=== PATIENT | female | born 1990 | race Caucasian/White ===

== ENCOUNTER → 2017-07-31 09:51 | Outpatient (CLI) | payer OTHER, SELFPAY ==
--- NOTE | 2017-07-31 | DI.US.S_ITS ---
PROCEDURE: US OB FOLLOW UP INDICATIONS: RE-EVALUATION FACE AND HEART OUTSIDE/PRIOR DATING DATA: Last menstrual period (LMP): 02/06/17. LMP-based estimated date of delivery (JEFFERY): 11/13/17. First dating scan (date and location): 06/21/17 Estimated date of delivery (JEFFERY) from first dating scan: 11/14/17. TECHNIQUE: Real-time scanning was performed of the fetus, with image documentation. Endovaginal scanning: Not needed for this study COMPARISON: None. FINDINGS: A single living intrauterine gestation is present. Presentation: Vertex. Placenta: Placental position is anterior, without previa. Amniotic fluid index: 15.6 cm, normal range is 5-24 cm. heart rate: 145 beats per minute. Maternal cervical canal: Estimated gestational age from initial scan: 24 weeks 6 days. The facial area and lips/orbits were not well seen on the prior anatomy scan 06/27/17 and are well-visualized and appear normal now. Similarly, the ventricular outflow tracts were not well seen than previously and now are well-visualized and appear normal. IMPRESSION: Completion of anatomic survey with normal appearing structures noted above. Dictated by: Gene Hercules M.D. on 07/31/2017 at 11:23 Approved by: Gene Hercules M.D. on 07/31/2017 at 11:25
== END ==
PROVIDERS: PCP Family Medicine; Visit Provider Family Medicine
DX: Z34.92 Encounter for supervision of normal pregnancy, unspecified, second trimester (principal); Z3A.24 24 weeks gestation of pregnancy
CPT/HCPCS: 76816

== ENCOUNTER → 2017-10-18 12:09 | Outpatient (CLI) | payer OTHER, SELFPAY ==
[2017-10-19 08:58] LABS: Strep Grp B PCR NEG for Grp B Strep
== END ==
PROVIDERS: PCP Family Medicine; Visit Provider Family Medicine
DX: Z34.03 Encounter for supervision of normal first pregnancy, third trimester (principal)
CPT/HCPCS: 87653

== ENCOUNTER 2017-11-13 01:17 | Inpatient (IN) | payer OTHER, SELFPAY ==
[2017-11-13 03:56] LABS: Add Manual Diff / Slide Review NO; Basophils Percent Auto 0.2 % (0-2); Eosinophils Percent Auto 0.1 % (2-4); Hematocrit 29.2 % (36-46); Lymphocytes Percent Auto 6.4 % (25-40); Mean Corpuscular HGB Conc 34.2 % (30-36); Mean Corpuscular Hemoglobin 28.1 PG (26-34); Mean Corpuscular Volume 82.1 fL (80-100); Monocytes Percent Auto 3.3 % (3-14); Neutrophils Absolute Auto 15800 /uL (3000-5900); Platelet Count 213 X10^3/uL (150-400); Red Blood Cell Count 3.56 X10^6/uL (4.0-5.2); Red Cell Distribution Width 14.6 % (11.6-14.8); White Blood Cell Count 17.6 X10^3/uL (4.5-11.0)
[2017-11-13 05:53] VITALS: BP 129/80
[2017-11-13] MEDS: IBUPROFEN 600 MG TABLET PO ×3 (06:44→20:06)
--- NOTE | 2017-11-13 08:19 | PM.OBHP.1 ---
OB HPI Date/Time Date of admission: 11/13/17 Date Patient Seen: 11/13/17 Time Patient Seen: 04:00 History of Present Condition Chief complaint: LABOR & DELIVERY : 3 Para: 0 Estimated Date of Delivery: 11/15/17 Estimated Gestational Age (weeks): 39w5d Narrative: Jami Campbell is a 27 year old who presented in active labor. She reports having contractions starting around 10pm. They have been getting progressively closer together and stronger in intensity, now every 2-3 minutes. She has had some vaginal spotting. No LOF. Feeling baby move regularly. History of Present care: good care Dating criteria: LMP confirmed by 1st trimester US Ultrasounds: normal mid trimester US Obstetrical complications: none Medical complications: none Preadmission Labs Blood type: A (+) positive -: Antibody screen: negative, GBS status: negative, HBsAG: negative, HIV: negative and RPR/VDLR: negative -: Chlamydia screen: not detected and Gonorrhea screen: not detected -: Rubella: immune and Varicella: immune HCT: 29.1 HCAB: negative Urine: negative 1 hr GTT: 139 3 hr GTT: 1 hr (128), 2 hr (137) and 3 hr (61) Prior (ies) History: 2 spontaneous abortions Evaluation Evaluation Baseline heart rate: 130 Variability: Moderate (11-25) monitor accelerations: Present monitor decelerations: Absent Contraction Frequency (minutes): 3 Category of Tracing: I Cervical dilation (cm): 10 Cervical effacement (%): 100 station: +2 Laboratory results: Laboratory Tests 11/13/17 11/13/17 03:40 03:40 WBC 17.6 H RBC 3.56 L Hgb 10.0 L Hct 29.2 L MCV 82.1 MCH 28.1 MCHC 34.2 RDW 14.6 Plt Count 213 Neut % (Auto) 90.0 H Lymph % (Auto) 6.[address] [place] % (Auto) 3.3 Eos % (Auto) 0.1 L Baso % (Auto) 0.2 Neut # (Auto) 20910 H Blood Type A Positive Antibody Screen Negative PFSH Social History Smoking Status: Never smoker Meds Home Medications Medication Instructions Recorded Confirmed Type [ TABLET] #100 06/21/17 09/06/17 History breast pump #1 each 09/24/17 Rx Electric Breast Pump #1 ea 09/25/17 Rx Allergies Allergy/AdvReac Type Severity Reaction Status Date / Time Penicillins [PENICILLINS] Allergy Unknown Unverified 06/26/17 12:51 Review of Systems Review of Systems All systems reviewed & are unremarkable except as noted in HPI and below Exam Vital Signs (past 8 hours): - 11/13/17 05:53 Blood Pressure 129/80 H Narrative Exam Narrative: Gen: Appears very uncomfortable with contractions, sitting in bed, breathing heavily CV: RRR Resp: clear to auscultation bilaterally Abd: gravid, soft, appropriately tender Ext: trace edema Objective Labs Result Diagrams: 11/13/17 03:40 Labs: Laboratory Results - last 24 hr 11/13/17 11/13/17 03:40 03:40 WBC 17.6 H RBC 3.56 L Hgb 10.0 L Hct 29.2 L MCV 82.1 MCH 28.1 MCHC 34.2 RDW 14.6 Plt Count 213 Neut % (Auto) 90.0 H Lymph % (Auto) 6.[address] [place] % (Auto) 3.3 Eos % (Auto) 0.1 L Baso % (Auto) 0.2 Neut # (Auto) 23434 H Blood Type A Positive Antibody Screen Negative Assessment and Plan (1) 39 weeks gestation of : Current visit: Yes Status: Acute Plan: Plan: 27yo at 39w5d who presented in active labor. GBS negative, Rh positive. - Expectant management, anticipate - FHT reassuring - GBS negative, no antibiotics indicated - Does not desire epidural for pain control
--- NOTE | 2017-11-13 08:30 | PM.OBPRVD ---
Delivery date: 11/13/17 Intrapartal events: None Induction method: none Delivery monitor: external FHT Route of delivery: Episiotomy description: None Laceration description: Vaginal - 1st Degree (right labial) Delivery repair: chromic Estimated blood loss (mL): 300 Anesthesia type: None Complications: None Narrative: PROCEDURE: at 39w5d presented in active labor and was admitted to Labor and Delivery. The patient progressed through the 1st stage over 5 hours. Pain was controlled with natural methods. The patient progressed through the 2nd stage over 30 minutes and delivered a viable female infant with APGARs 8/9 at 4:13 via . The perineum and vagina were inspected with right labial laceration repaired with 3-O Chromic. PREPROCEDURE DIAGNOSIS: Intrauterine at 39w5d Anemia GBS negative RH positive POSTPROCEDURE DIAGNOSIS: Intrauterine at 39w5d, delivered Same as preprocedure PROCEDURE: Spontaneous vaginal delivery LABOR AUGMENTATION: None ROM APPEARANCE: Clear BABY A OUTCOME: Viable BABY A WEIGHT: 8lb7oz BABY A CORD GASES OBTAINED: No PLACENTA DELIVERY TIME: 4:19 PLACENTA APPEARANCE: Intact Baby 1: gender: Female Presentation: vertex position: Right Occiput Anterior Placenta delivery description: Spontaneous cord vessel description: 3 Vessels score (1 min): 8 score (5 min): 9 Narrative: Plan for aftercare: Normal care support
[2017-11-13] MEDS: PRENATAL VIT,CALC/IRON/FOLIC 1 TABLET 1 TAB PO (10:58)
[2017-11-13] MEDS: DOCUSATE 250 MG CAPSULE PO (10:58)
[2017-11-14] MEDS: IBUPROFEN 600 MG TABLET PO ×3 (02:13→16:51)
[2017-11-14 06:16] LABS: Add Manual Diff / Slide Review NO; Basophils Percent Auto 0.2 % (0-2); Eosinophils Percent Auto 0.4 % (2-4); Hematocrit 25.1 % (36-46); Hemoglobin 8.6 g/dL (12.0-16.0); Mean Corpuscular HGB Conc 34.4 % (30-36); Mean Corpuscular Hemoglobin 28.6 PG (26-34); Mean Corpuscular Volume 83.2 fL (80-100); Monocytes Percent Auto 5.2 % (3-14); Neutrophils Absolute Auto 9000 /uL (3000-5900); Neutrophils Percent Auto 79.2 % (50-75); Platelet Count 191 X10^3/uL (150-400); Red Blood Cell Count 3.02 X10^6/uL (4.0-5.2); Red Cell Distribution Width 14.9 % (11.6-14.8); White Blood Cell Count 11.3 X10^3/uL (4.5-11.0)
--- NOTE | 2017-11-14 09:04 | P.DS_ITS ---
Discharge Providers Date of admission: 11/13/17 01:17 Primary care physician: Richa Pinto MD Consults: 11/13/17 05:53 Consult to Precision Lathe Operator Routine Comment: Discharge provider: Richa Pinto MD Summary Date Patient Seen: 11/14/17 Time Patient Seen: 08:10 Hospital Course: The patient presented in active labor. She has natural methods for pain control. She progressed to complete and had spontaneous vaginal delivery of a viable baby girl with weight 8 lb 7 oz and Apgars 8 and 9. There was a right labial laceration that was repaired. The patient tolerated delivery well. there are no complications. This has discharge is voiding, passing flatus, ambulating without difficulty. Her lochia was decreasing appropriately. She was breast feeding with good latch overall. She will follow up in clinic in 6 weeks.. Peripartum Data Infant Delivery Method: Natural Vaginal Episiotomy description: None Procedures: Spontaneous vaginal delivery complications: none Discharge Diagnosis (1) 39 weeks gestation of : Status: Acute (2) (spontaneous vaginal delivery): Status: Acute Status at Discharge Functional status at discharge: independent ambulation Overall status at discharge: patient is progressing back to baseline Time Spent with Patient Total time spent providing and/or coordinating discharge services: Objective Labs Result Diagrams: 11/14/17 06:00 Labs: Laboratory Results - last 24 hr 11/14/17 06:00 WBC 11.3 H RBC 3.02 L Hgb 8.6 L Hct 25.1 L MCV 83.2 MCH 28.6 MCHC 34.4 RDW 14.9 H Plt Count 191 Neut % (Auto) 79.2 H Lymph % (Auto) 15.0 L [place] % (Auto) 5.2 Eos % (Auto) 0.4 L Baso % (Auto) 0.2 Neut # (Auto) 9000 H Discharge Plan Discharge Plan Patient Disposition: Home Discharge Med Rec/Prescriptions Prescriptions: New docusate sodium 250 mg Capsule 250 mg PO DAILY Qty: 30 RF: 0 ferrous gluconate 324 mg (38 mg iron) Tablet 324 mg PO BID Qty: 60 RF: 0 acetaminophen 325 mg Tablet 650 mg PO Q6HR PRN (Reason: Pain, Mild (1-3)) Qty: 30 RF: 0 benzocaine-menthol [Dermoplast (with menthol)] 20-0.5 % Aerosol 1 spray Topical Q1HR PRN (Reason: perineal pain) Qty: 15 RF: 0 lanolin [[id number]] Cream 1 applic Topical PRN PRN (Reason: Tenderness) Qty: 15 RF: 0 ibuprofen 600 mg Tablet 600 mg PO Q6HR PRN (Reason: Pain, Mild (1-3)) Qty: 30 RF: 0 Continue [ TABLET] Qty: 100 RF: 0 breast pump device .ROUTE .MEDSUPPLY Qty: 1 RF: 0 Electric Breast Pump Qty: 1 RF: 0 Discontinued diph,pertuss(acel),tet vac(PF) [Adacel(Tdap Adolesn/Adult)(PF)] 2 Lf-(2.5-5-3- 5 mcg)-5Lf/0.5 mL suspension 0.5 ml IM ONCE Qty: 0.5 RF: 0 Follow up/Referrals: Richa Pinto MD [Primary Care Provider] - 6 Weeks Provider Discharge Instructions Diet: Regular Skin/Wound/Dressing Care Report to your healthcare provider any signs of infection, such as:: chills, fever, increased pain and unusual drainage Visit Report/Discharge Packet Instructions: DI for Labor and Delivery, Vaginal Discharge Data Primary Care Provider: Richa Pinto Attending Provider: Richa Pinto Admit Date/Time: 11/13/17 01:17
[2017-11-14] MEDS: FERROUS GLUCONATE 324 MG TABLET PO (10:37)
[2017-11-14] MEDS: DERMOPLAST SPRAY 20% 60 ML 1 SPRAY TOP (10:39)
[2017-11-14] MEDS: DOCUSATE 250 MG CAPSULE PO (10:40)
[2017-11-14] MEDS: LANOLIN OINT 7 GM 1 APPLIC TOP (10:41)
[2017-11-14 19:02] VITALS: BP 137/83; PULSE 78; RESP 16; TEMP 36.6
== END 2017-11-14 18:59 | disposition home or self-care (01) | DRG 775 ==
PROVIDERS: Admitting Provider Family Medicine; PCP Family Medicine; Visit Provider Family Medicine
DX: O99.02 Anemia complicating childbirth (principal); Z3A.39 39 weeks gestation of pregnancy; Z37.0 Single live birth; O70.0 First degree perineal laceration during delivery
CPT/HCPCS: 36415; 59050; 59410; 85025; 86850; 86900; 86901; G0379

== ENCOUNTER → 2017-12-11 11:22 | Outpatient (CLI) | payer OTHER, SELFPAY ==
[2017-12-11 12:07] LABS: Add Manual Diff / Slide Review NO; Basophils Percent Auto 0.8 % (0-2); Eosinophils Percent Auto 2.7 % (2-4); Hematocrit 32.9 % (36-46); Hemoglobin 11.1 g/dL (12.0-16.0); Lymphocytes Percent Auto 18.7 % (25-40); Mean Corpuscular HGB Conc 33.6 % (30-36); Mean Corpuscular Hemoglobin 27.6 PG (26-34); Mean Corpuscular Volume 81.9 fL (80-100); Monocytes Percent Auto 5.5 % (3-14); Neutrophils Absolute Auto 6100 /uL (3000-5900); Neutrophils Percent Auto 72.3 % (50-75); Platelet Count 321 X10^3/uL (150-400); Red Blood Cell Count 4.01 X10^6/uL (4.0-5.2); Red Cell Distribution Width 14.2 % (11.6-14.8); White Blood Cell Count 8.4 X10^3/uL (4.5-11.0)
[2017-12-11 12:25] LABS: Alanine Aminotransferase 33 IU/L (9-52); Albumin 4.5 g/dL (3.5-5.0); Albumin Globulin Ratio 1.5 (1.0-2.8); Alkaline Phosphatase 86 U/L (38-126); Aspartate Aminotransferase 24 IU/L (14-36); BUN Creatinine Ratio 12.5 (6-22); Bilirubin Total 0.6 mg/dL (0.2-1.3); Blood Urea Nitrogen 10 mg/dL (7-17); Calcium 9.6 mg/dL (8.4-10.2); Carbon Dioxide 30 mmol/L (22-32); Chloride 103 mmol/L (98-107); Estimated Glomerular Filt Rate > 60.0 mL/min (>60); Glucose 93 mg/dL (70-100); HEMOLYSIS < 15 (0-50); Lipase 81 U/L (23-300); Potassium 3.9 mmol/L (3.4-5.1); Sodium 145 mmol/L (137-145); Total Protein 7.5 g/dL (6.3-8.2)
== END ==
PROVIDERS: PCP Family Medicine; Visit Provider Family Medicine
DX: R10.11 Right upper quadrant pain (principal)
CPT/HCPCS: 36415; 80053; 83690; 85025

== ENCOUNTER → 2018-01-03 13:42 | Outpatient (CLI) | payer OTHER, SELFPAY | PROVIDERS: PCP Family Medicine; Visit Provider Family Medicine | DX: Z30.430 Encounter for insertion of intrauterine contraceptive device (principal) | CPT/HCPCS: 87491; 87591 ==